=== PATIENT | male | born 1950 | race Caucasian/White ===

== ENCOUNTER 2016-12-31 08:00 | Outpatient (CLI) | payer MEDICARE | END 2016-12-31 08:01 | disposition home or self-care (01) | DX: I10 Essential (primary) hypertension (principal) ==

== ENCOUNTER 2018-03-02 09:08 | Outpatient (CLI) | payer MEDICARE ==
[2018-03-02 14:07] LABS: BASOPHILS % (AUTO) 0.1 %; EOSINOPHILS # (AUTO) 0.4 10^3/uL (0.0-0.7); EOSINOPHILS % (AUTO) 5.5 %; HGB - HEMOGLOBIN 14.9 g/dL (14.0-18.0); LYMPHOCYTES # (AUTO) 2.5 10^3/uL (1.5-3.5); LYMPHOCYTES % (AUTO) 39.2 %; MEAN CORPUSCULAR HEMOGLOBIN 32.7 pg (27.0-31.0); MEAN CORPUSCULAR VOLUME 96.1 fL (80.0-94.0); MEAN PLATELET VOLUME 10.2 fL (7.4-11.4); MONOCYTES # (AUTO) 0.7 10^3/uL (0.0-1.0); MONOCYTES % (AUTO) 10.2 %; NEUTROPHILS # (AUTO) 2.9 10^3/uL (1.5-6.6); PLT - PLATELET COUNT 191 10^3/uL (130-450); RED BLOOD COUNT 4.57 10^6/uL (4.70-6.10); RED CELL DISTRIBUTION WIDTH 13.4 % (12.0-15.0); WHITE BLOOD COUNT 6.4 x10^3/uL (4.8-10.8)
[2018-03-02 14:21] LABS: ALBUMIN/GLOBULIN RATIO 1.2 (1.0-2.2); ALKALINE PHOSPHATASE 88 IU/L (42-121); ALT ALANINE AMINOTRANSFERASE 31 IU/L (10-60); AST ASPARTATE AMINOTRANSFERASE 36 IU/L (10-42); BILIRUBIN,TOTAL 0.9 mg/dL (0.2-1.0); BUN - BLOOD UREA NITROGEN 23 mg/dL (6-20); CALCIUM 9.4 mg/dL (8.5-10.3); CARBON DIOXIDE - CO2 30 mmol/L (21-32); CHLORIDE 97 mmol/L (101-111); CHOL/HDL RATIO 2.8 (<5.0); CHOLESTEROL 207 mg/dL; CREATININE 1.1 mg/dL (0.6-1.2); GFR - MDRD 67 (>89); GLUCOSE 94 mg/dL (70-100); HDL CHOLESTEROL 74 mg/dL; LDL CHOLESTEROL,CALCULATED 119 mg/dL; LDL/HDL RATIO 1.6 (<3.6); SODIUM 134 mmol/L (135-145); TOTAL PROTEIN 7.3 g/dL (6.7-8.2); VLDL CHOLESTEROL 14 mg/dL
== END 2018-03-02 09:09 ==
LOC: LAB.R 09:08
PROVIDERS: ATTEND Internal Medicine
DX: E78.5 Hyperlipidemia, unspecified (principal); I10 Essential (primary) hypertension
CPT/HCPCS: 80053; 80061; 83721; 85025

== ENCOUNTER 2018-08-15 08:45 | Day surgery (SDC) | payer MEDICARE ==
[2018-08-15] MEDS ORDERED: LACTATED RINGERS 1,000 ML IV ONE ×2 (09:00→09:07)
[2018-08-15] MEDS ORDERED: MIDAZOLAM 2 MG/2 ML VIAL IVP ONE (09:07)
[2018-08-15] MEDS ORDERED: fentaNYL 250 MCG/5 ML VIAL IVP ONE (09:07)
[2018-08-15 10:06] VITALS: BP 122/71
== END 2018-08-15 08:46 | disposition home or self-care (01) ==
LOC: SDS 08:45
PROVIDERS: ATTEND Surgery
PROC: 0DJD8ZZ Inspection of Lower Intestinal Tract, Via Natural or Artificial Opening Endoscopic (ICD-10-PCS; principal; 2018-08-15 09:45)
DX: Z12.11 Encounter for screening for malignant neoplasm of colon (principal); K64.8 Other hemorrhoids; I10 Essential (primary) hypertension; Z80.0 Family history of malignant neoplasm of digestive organs
CPT/HCPCS: G0105; J3010; J7120

== ENCOUNTER 2019-08-22 09:30 | Outpatient (CLI) | payer MEDICARE ==
[2019-08-22 09:51] LABS: BASOPHILS # (AUTO) 0.1 10^3/uL (0.0-0.1); EOSINOPHILS # (AUTO) 0.2 10^3/uL (0.0-0.7); HGB - HEMOGLOBIN 14.9 g/dL (14.0-18.0); LYMPHOCYTES # (AUTO) 2.4 10^3/uL (1.5-3.5); LYMPHOCYTES % (AUTO) 39.9 %; MEAN CORPUSCULAR HEMOGLOBIN 32.5 pg (27.0-31.0); MEAN CORPUSCULAR HGB CONC 34.1 g/dL (32.0-36.0); MEAN CORPUSCULAR VOLUME 95.2 fL (80.0-94.0); MEAN PLATELET VOLUME 9.9 fL (7.4-11.4); MONOCYTES # (AUTO) 0.5 10^3/uL (0.0-1.0); MONOCYTES % (AUTO) 8.7 %; NEUTROPHILS # (AUTO) 2.8 10^3/uL (1.5-6.6); NEUTROPHILS % (AUTO) 47.2 %; PLT - PLATELET COUNT 194 10^3/uL (130-450); RED BLOOD COUNT 4.59 10^6/uL (4.70-6.10); RED CELL DISTRIBUTION WIDTH 12.9 % (12.0-15.0)
[2019-08-22 10:05] LABS: ALBUMIN 4.2 g/dL (3.2-5.5); ALBUMIN/GLOBULIN RATIO 1.4 (1.0-2.2); ALKALINE PHOSPHATASE 56 IU/L (42-121); ALT ALANINE AMINOTRANSFERASE 24 IU/L (10-60); AST ASPARTATE AMINOTRANSFERASE 27 IU/L (10-42); BILIRUBIN,TOTAL 0.7 mg/dL (0.2-1.0); BUN - BLOOD UREA NITROGEN 23 mg/dL (6-20); CALCIUM 8.9 mg/dL (8.5-10.3); CARBON DIOXIDE - CO2 30 mmol/L (21-32); CHLORIDE 97 mmol/L (101-111); CHOLESTEROL 198 mg/dL; CREATININE 1.1 mg/dL (0.6-1.2); GFR - MDRD 66 (>89); GLUCOSE 110 mg/dL (70-100); HDL CHOLESTEROL 66 mg/dL; LDL CHOLESTEROL,CALCULATED 123 mg/dL; LDL/HDL RATIO 1.9 (<3.6); SODIUM 139 mmol/L (135-145); TOTAL PROTEIN 7.3 g/dL (6.7-8.2); VLDL CHOLESTEROL 9 mg/dL
[2019-08-22 10:52] LABS: THYROID STIMULATING HORMONE 2.82 uIU/mL (0.34-5.60)
[2019-08-22 10:56] LABS: FREE T4 (FREE THYROXINE) 0.8 ng/dL (0.58-1.64)
== END 2019-08-22 09:31 | disposition home or self-care (01) ==
LOC: LAB 09:30
PROVIDERS: ATTEND Family Medicine
DX: K21.9 Gastro-esophageal reflux disease without esophagitis (principal); I10 Essential (primary) hypertension; E78.5 Hyperlipidemia, unspecified
CPT/HCPCS: 36415; 80053; 80061; 83721; 84439; 84443; 84481; 85025

== ENCOUNTER 2020-10-17 07:58 | Outpatient (CLI) | payer MEDICARE ==
[2020-10-17 08:15] LABS: BASOPHILS # (AUTO) 0.1 10^3/uL (0.0-0.1); BASOPHILS % (AUTO) 0.8 %; EOSINOPHILS # (AUTO) 0.2 10^3/uL (0.0-0.7); EOSINOPHILS % (AUTO) 3.8 %; HCT - HEMATOCRIT 44.5 % (42.0-52.0); HGB - HEMOGLOBIN 14.5 g/dL (14.0-18.0); LYMPHOCYTES # (AUTO) 2.7 10^3/uL (1.5-3.5); LYMPHOCYTES % (AUTO) 41.5 %; MEAN CORPUSCULAR HEMOGLOBIN 31.6 pg (27.0-31.0); MEAN CORPUSCULAR HGB CONC 32.6 g/dL (32.0-36.0); MEAN CORPUSCULAR VOLUME 96.9 fL (80.0-94.0); MEAN PLATELET VOLUME 10.3 fL (7.4-11.4); MONOCYTES # (AUTO) 0.7 10^3/uL (0.0-1.0); MONOCYTES % (AUTO) 10.2 %; NEUTROPHILS # (AUTO) 2.8 10^3/uL (1.5-6.6); NEUTROPHILS % (AUTO) 43.4 %; PLT - PLATELET COUNT 188 10^3/uL (130-450); RED BLOOD COUNT 4.59 10^6/uL (4.70-6.10); RED CELL DISTRIBUTION WIDTH 12.7 % (12.0-15.0); WHITE BLOOD COUNT 6.4 x10^3/uL (4.8-10.8)
[2020-10-17 08:35] LABS: ALBUMIN/GLOBULIN RATIO 1.3 (1.0-2.2); ALKALINE PHOSPHATASE 60 IU/L (42-121); ALT ALANINE AMINOTRANSFERASE 27 IU/L (10-60); AST ASPARTATE AMINOTRANSFERASE 29 IU/L (10-42); BILIRUBIN,TOTAL 0.6 mg/dL (0.2-1.0); BUN - BLOOD UREA NITROGEN 20 mg/dL (6-20); CALCIUM 9.3 mg/dL (8.5-10.3); CARBON DIOXIDE - CO2 29 mmol/L (21-32); CHLORIDE 98 mmol/L (101-111); CHOL/HDL RATIO 3.2 (<5.0); CHOLESTEROL 225 mg/dL; CREATININE 1.2 mg/dL (0.6-1.2); GFR - MDRD 60 (>89); GLUCOSE 103 mg/dL (70-100); HDL CHOLESTEROL 70 mg/dL; LDL CHOLESTEROL,CALCULATED 140 mg/dL; POTASSIUM 4.1 mmol/L (3.5-5.0); SODIUM 137 mmol/L (135-145); TOTAL PROTEIN 7.2 g/dL (6.7-8.2); TRIGLYCERIDES 73 mg/dL; VLDL CHOLESTEROL 15 mg/dL
[2020-10-17 08:41] LABS: THYROID STIMULATING HORMONE 3.27 uIU/mL (0.34-5.60)
== END 2020-10-17 07:59 | disposition home or self-care (01) ==
LOC: LAB 07:58
PROVIDERS: ATTEND Family Medicine
DX: M15.9 Polyosteoarthritis, unspecified (principal); I10 Essential (primary) hypertension; E78.5 Hyperlipidemia, unspecified
CPT/HCPCS: 36415; 80053; 80061; 83721; 84443; 85025

== ENCOUNTER 2021-04-13 12:15 | Outpatient (CLI) | payer MEDICARE ==
--- NOTE | 2021-04-13 14:35 | XRAY Report ---
PROCEDURE: Lumbar Spine 2 View INDICATIONS: CHRONIC, INTERMITTENT BACK PX TECHNIQUE: 2 views of the lumbar spine were acquired. COMPARISON: None. FINDINGS: Bones: 5 [id number] vertebrae are present. Small vertebral body occupies. Multilevel intervert ebral loss of disc space height. Alignment is within normal limits. No vertebral body compression fr actures. No suspicious bony lesions. Soft tissues: Overlying bowel gas pattern is normal. No suspicious soft tissue calcifications. IMPRESSION: No compression fracture. Mild to moderate degenerative change in the lumbar spine. Reviewed by: Toñito Adam MD on 04/13/2021 1:33 PM [facility] Approved by: Toñito Adam MD on 04/13/2021 1:33 PM [facility] Station ID: [id number]
== END 2021-04-13 23:59 | disposition home or self-care (01) ==
LOC: DI.N 12:15
PROVIDERS: ATTEND Family Medicine
DX: M51.36 Other intervertebral disc degeneration, lumbar region (principal)

== ENCOUNTER 2021-07-16 11:45 | Outpatient (CLI) | payer MEDICARE ==
--- NOTE | 2021-07-16 16:19 | XRAY Report ---
PROCEDURE: Hip w/Pelvis 2-3V RT INDICATIONS: HIP JOINT PAIN, RIGHT TECHNIQUE: AP pelvis with lateral view(s) of the right hip(s). COMPARISON: None. FINDINGS: Bones: No fractures or dislocations. Moderate bilateral hip joint osteophytic changes are seen. No e vidence of avascular necrosis of femoral head. Pelvic ring appears intact. No suspicious bony lesio ns. Soft tissues: The visualized bowel gas pattern is normal. No suspicious soft tissue calcifications. IMPRESSION: Moderate bilateral hip joint osteoarthritis. No fracture or dislocation. No evidence of a vascular necrosis of femoral head. Reviewed by: Cristo Junior MD on 07/16/2021 4:17 PM PST Approved by: Cristo Junior MD on 07/16/2021 4:17 PM PST Station ID: [id number]
== END 2021-07-16 11:46 | disposition home or self-care (01) ==
LOC: DI 11:45
PROVIDERS: ATTEND Family Medicine
DX: M16.0 Bilateral primary osteoarthritis of hip (principal)

== ENCOUNTER 2021-11-12 09:14 | Outpatient (CLI) | payer MEDICARE ==
--- NOTE | 2021-11-12 14:03 | MRI Report ---
PROCEDURE: Lumbar Spine W/O INDICATIONS: LUMBAR BACK PAIN WITH RADICULOPATHY TECHNIQUE: Noncontrast sagittal T1 spin echo and T2 fast echo, sagittal STIR, axial T1 and T2 fast spin echo thr ough the lumbar spine. In cases with scoliosis, additional coronal T2 fast spin echo may be performe d. COMPARISON: None. FINDINGS: Image quality: Excellent. Alignment and Curvature: There is normal bony alignment. Bone Marrow: Marrow is of normal overall signal. No acute vertebral body compression fractures. Spinal Cord: Conus medullaris terminates at the L1 level. Visualized cord demonstrates normal signa l and size. Paraspinous Soft Tissues: No paravertebral masses. T12-L1: Small 4 mm disc fragment or thickening of the posterior longitudinal ligament that the T12 l evel noted without central stenosis. No disc bulge, central or foraminal stenosis. L1-L2: Disc space narrowing with posterior disc bulge results in mild central stenosis. Hypertroph ic facet joints contribute to moderate bilateral foraminal stenosis L2-L3: Disc space narrowing and cervical disc bulge with hypertrophic facet joints and ligamentum flavum laxity combines to result in severe central stenosis. Moderate bilateral foraminal stenosis pr esent. L3-L4: Disc space narrowing and posterior disc osteophyte complex with hypertrophic facet joints in the mentum flavum laxity combined results in severe central stenosis. Moderate bilateral foraminal s tenosis greater on the left L4-L5: Disc space narrowing with circumferential disc bulge and hypertrophic facet joints combine t o result in mild central stenosis. Mild bilateral foraminal stenosis. L5-S1: Disc height is preserved. No central or foraminal stenosis. IMPRESSION: 1. Multilevel degenerative disc disease and arthropathy results in varying degrees of central and for aminal stenosis including severe central stenosis at L2-3 and L3-4 Reviewed by: Francesco Villatoro MD on 11/12/2021 1:02 PM [facility] Approved by: Francesco Villatoro MD on 11/12/2021 1:02 PM [id number] Station ID: [id number]
== END 2021-11-12 09:15 | disposition home or self-care (01) ==
LOC: DI 09:14
PROVIDERS: ATTEND Physician Assistant
DX: M47.26 Other spondylosis with radiculopathy, lumbar region (principal); M48.061 Spinal stenosis, lumbar region without neurogenic claudication

== ENCOUNTER 2023-01-25 07:11 | Outpatient (CLI) | payer MEDICARE ==
[2023-01-25 07:35] LABS: BASOPHILS # (AUTO) 0.1 10^3/uL (0.0-0.1); BASOPHILS % (AUTO) 1.1 %; EOSINOPHILS # (AUTO) 0.2 10^3/uL (0.0-0.7); EOSINOPHILS % (AUTO) 2.7 %; HCT - HEMATOCRIT 41.5 % (42.0-52.0); HGB - HEMOGLOBIN 14.3 g/dL (14.0-18.0); LYMPHOCYTES # (AUTO) 2.7 10^3/uL (1.5-3.5); LYMPHOCYTES % (AUTO) 38.6 %; MEAN CORPUSCULAR HEMOGLOBIN 32.4 pg (27.0-31.0); MEAN CORPUSCULAR HGB CONC 34.5 g/dL (32.0-36.0); MEAN CORPUSCULAR VOLUME 94.1 fL (80.0-94.0); MEAN PLATELET VOLUME 9.9 fL (7.4-11.4); MONOCYTES # (AUTO) 0.7 10^3/uL (0.0-1.0); MONOCYTES % (AUTO) 10.5 %; NEUTROPHILS # (AUTO) 3.3 10^3/uL (1.5-6.6); NEUTROPHILS % (AUTO) 46.8 %; PLT - PLATELET COUNT 187 10^3/uL (130-450); RED BLOOD COUNT 4.41 10^6/uL (4.70-6.10); RED CELL DISTRIBUTION WIDTH 13.2 % (12.0-15.0); WHITE BLOOD COUNT 7.1 x10^3/uL (4.8-10.8)
[2023-01-25 08:12] LABS: ALBUMIN 3.9 g/dL (3.2-5.5); ALBUMIN/GLOBULIN RATIO 1.3 (1.0-2.2); ALKALINE PHOSPHATASE 66 IU/L (42-121); ALT ALANINE AMINOTRANSFERASE 22 IU/L (10-60); AST ASPARTATE AMINOTRANSFERASE 24 IU/L (10-42); BILIRUBIN,TOTAL 0.7 mg/dL (0.2-1.0); BUN - BLOOD UREA NITROGEN 21 mg/dL (6-20); CALCIUM 9.2 mg/dL (8.5-10.3); CARBON DIOXIDE - CO2 30 mmol/L (21-32); CHLORIDE 102 mmol/L (101-111); CHOL/HDL RATIO 3.4 (<5.0); CHOLESTEROL 192 mg/dL; CREATININE 1.2 mg/dL (0.6-1.2); GFR - MDRD 59 (>89); GLUCOSE 109 mg/dL (70-100); HDL CHOLESTEROL 57 mg/dL; LDL CHOLESTEROL,CALCULATED 119 mg/dL; LDL/HDL RATIO 2.1 (<3.6); POTASSIUM 3.7 mmol/L (3.5-5.0); SODIUM 139 mmol/L (135-145); TOTAL PROTEIN 6.8 g/dL (6.7-8.2); TRIGLYCERIDES 80 mg/dL; VLDL CHOLESTEROL 16 mg/dL
[2023-01-25 08:23] LABS: THYROID STIMULATING HORMONE 2.45 uIU/mL (0.34-5.60)
== END 2023-01-25 07:12 | disposition home or self-care (01) ==
LOC: LAB 07:11
PROVIDERS: ATTEND Family Medicine
DX: I10 Essential (primary) hypertension (principal); M15.9 Polyosteoarthritis, unspecified; M25.519 Pain in unspecified shoulder; M54.16 Radiculopathy, lumbar region; F33.2 Major depressive disorder, recurrent severe without psychotic features; E78.5 Hyperlipidemia, unspecified
CPT/HCPCS: 36415; 80053; 80061; 83721; 84443; 85025